=== PATIENT | male | born 1980 | race Caucasian/White ===

== ENCOUNTER 2020-01-08 03:54 | Emergency (ER) | payer SELFPAY ==
[~2020-01-08] VITALS: Ht 185.4 cm; Wt 90.1 kg
--- NOTE | 2020-01-08 04:43 | NUR ---
PT CAME INTO ED STATING "AFTER I PRAYED TODAY I STARTED TO FEEL WEIRD, I ATE AND THEN JUST KEPT EATING AND EATING AND I COULDNT STOP, I WAS JUST HUNGRY FOR MORE". PT ALSO REPORTS CHILLS AND USING METH EARLIER TODAY. PT IS RESTING ON GURNEY, NAD, PLACED ON SPO2/BP/ECG MONITORING AT THIS TIME. PT IS NAD, WAITING FOR ERP EVAL. WCTM.
--- NOTE | 2020-01-08 05:39 | NUR ---
PT MEDICATED PER MAR, RESTING ON GURNEY, RAD AT BS, NAD, NO CHANGE IN CONDITION, BED IN LOWEST, CALL LIGHT ON LAP, PROVIDED EXTRA WARM BLANKET FOR COMFORT, WCTM. WAITING FOR TEST RESULTS.
[2020-01-08] MEDS ORDERED: LORazepam 2 MG/ML, 1ML ONE (05:56)
[2020-01-08 05:58] LABS: BASOPHILS % (AUTO) 0 % (0-1); EOSINOPHILS % (AUTO) 0 % (1-7); LYMPHOCYTES % (AUTO) 7 % (22-44); MEAN CORPUSCULAR HGB CONC 34.6 g/dL (33.2-36.2); MEAN PLATELET VOLUME 8.1 fL (7.4-10.4); MONOCYTES % (AUTO) 10 % (2-9); NEUTROPHILS % (AUTO) 82 % (42-75); PLATELET COUNT 230 x10^3/uL (130-400); RED BLOOD COUNT 5.17 x10^6/uL (4.38-5.82); RED CELL DISTRIBUTION WIDTH 13.4 % (9.4-14.8)
[2020-01-08] MEDS ORDERED: SODIUM CHLORIDE 0.9% 1,000ML IVBOLUS ONE (06:00)
[2020-01-08] MEDS ORDERED: LORazepam 2 MG/ML, 1ML IVPush ONE (06:00)
[2020-01-08 06:04] LABS: ALANINE AMINOTRANSFERASE 26 U/L (12-78); ALBUMIN 3.9 g/dL (3.4-5.0); ANION GAP 6 mmol/L (5-15); CHLORIDE 103 mmol/L (98-107); CREATININE 0.97 mg/dL (0.7-1.3); MD NO
[2020-01-08 06:09] LABS: ALKALINE PHOSPHATASE 85 U/L (45-117); BILIRUBIN,TOTAL 0.4 mg/dL (0.2-1.0); TOTAL PROTEIN 7.8 g/dL (6.4-8.2); TROPONIN I < 0.015 ng/mL (0.000-0.045)
[2020-01-08] MEDS ORDERED: SODIUM CHLORIDE FLUSH 10ML SYR IVF ONE (06:30)
--- NOTE | 2020-01-08 06:35 | NUR ---
PT NAD, RESTING ON GURNEY, APPEARS COMFORTABLE, DENIES ADDITIONAL QUESTIONS OR NEEDS AT THIS TIME, BED IN LOWEST, WCTM. WAITING FOR DC PAPERS.
[2020-01-08 06:49] VITALS: BP 131/87
--- NOTE | 2020-01-08 06:50 | NUR ---
Patient given discharge instructions and they have confirmed that they understand the instructions. Patient ambulatory with steady gait. NAD, DENIES ADDITIONAL NEEDS AT THIS TIME, QUESTIONS ANSWERED APPROPRIATELY, NO PERSONAL BELONGINGS LEFT IN ROOM AT TIME OF DC
== END 2020-01-08 06:52 | disposition home or self-care (01) ==
LOC: ED 06:08
DX: R07.9 Chest pain, unspecified (principal); F15.10 Other stimulant abuse, uncomplicated; R42 Dizziness and giddiness; R00.0 Tachycardia, unspecified; F17.210 Nicotine dependence, cigarettes, uncomplicated
CPT/HCPCS: 36415; 71045; 80053; 84484; 85025; 93005; 96374; 99285; 99406; J2060; J7030